=== PATIENT | female | born 1990 | race Caucasian/White ===

== ENCOUNTER 2021-12-09 23:16 | Emergency (ER) | payer BC, OTHER ==
[2021-12-10] MEDS ORDERED: TETANUS,DIPTH,PERTUSS P/F (BOOSTRIX) 0.5 ML VIAL IM ONE
[2021-12-10 00:02] VITALS: BP 119/93
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
== END 2021-12-10 00:09 | disposition home or self-care (01) ==
LOC: ER FS 23:19
DX: S41.012A Laceration without foreign body of left shoulder, initial encounter (principal); S81.012A Laceration without foreign body, left knee, initial encounter; Z23 Encounter for immunization; Z28.310 Unvaccinated for COVID-19; Y04.8XXA Assault by other bodily force, initial encounter; Y92.009 Unspecified place in unspecified non-institutional (private) residence as the place of occurrence of the external cause
CPT/HCPCS: 90715; 99284